=== PATIENT | female | born 1950 | race Caucasian/White ===

== ENCOUNTER 2025-06-21 11:12 | Emergency (ER) | payer MEDICARE, SELFPAY ==
[2025-06-21 11:15] VITALS: BP 166/95; PULSE 110; TEMP 36.8; O2SAT 98; BMI 24.9
--- NOTE | 2025-06-21 11:39 | CT_ITS ---
The [address] [address] Patient Name: MATEO HOUSE MRN: [id number] date: 1950 Sex: F Assigned Patient Location: ED.MAIN Current Patient Location: ED.MAIN Accession/Order Number: [id number] Exam Date: 06/21/2025 12:19 Report Date: 06/21/2025 12:57 At the request of: STEFFANY LEACH MD Procedure: CT abdomen pelvis w con CT ABDOMEN AND PELVIS WITH CONTRAST CLINICAL DATA: Generalized abdominal pain with constipation. COMPARISON: None Spiral images were obtained through the abdomen and pelvis following 100 mL of Omnipaque 300. This CT exam was performed using one or more following dose reduction techniques: Automated exposure control, adjustment of the mA and/or kV according to patient size, or use of iterative reconstruction technique. Limited cuts through the lung bases show atelectasis and/or scarring, greater on the left. There is a small Bochdalek hernia at the left hemidiaphragm containing fat. No calcified gallstones are identified. There is a 13 mm peripheral cyst at the anterior liver. Calcified splenic granulomas. The pancreas and adrenal glands show no acute abnormalities. There is cortical scarring at the superior pole of the left kidney. The renal nephrograms are symmetric. No hydronephrosis is seen. There is a tiny right renal cortical cyst. The abdominal aorta is normal caliber. There are a few small mesenteric lymph nodes. No ascites is seen. The small bowel loops are normal caliber. There is stool throughout the colon. Levoscoliotic curvature is visualized. There are also mild degenerative changes. Images through the pelvis are slightly limited by streak artifact from bilateral hip prostheses. No dilated small bowel is identified. The appendix is not discretely seen. There is stool at the cecum and distal colon. There is a short segment of apparent wall thickening at the sigmoid colon. There are descending and sigmoid diverticula. No associated active inflammation is seen. The uterus is surgically absent. Evaluation of the urinary bladder is limited by the hardware artifact. No ascites is seen. CT/CT abdomen pelvis w con IMPRESSION: HEPATIC AND RIGHT RENAL CYSTS. NO BOWEL OR URINARY TRACT OBSTRUCTION. MODERATE COLONIC STOOL COMPATIBLE WITH CONSTIPATION. DIVERTICULOSIS. APPARENT SEGMENT OF WALL THICKENING AT THE SIGMOID COLON. THIS MIGHT BE PHYSIOLOGIC. IF SYMPTOMS WARRANT AND NOT RECENTLY PERFORMED, FOLLOW-UP COLONOSCOPY COULD BE CONSIDERED TO EXCLUDE UNDERLYING PATHOLOGY. NO ADDITIONAL ACUTE FINDINGS. Impression dictated by: Dora Stanton M.D. 06/21/2025 12:57 PM Dictation Location: [place] [address] Electronically authenticated by: [id number] Y Date: 06/21/2025 12:57
--- NOTE | 2025-06-21 11:40 | ED_ITS ---
HPI HPI - General Adult General Chief complaint: Abdominal Pain Stated complaint: CONSTIPATION, ABDOMINAL PAIN Time Seen by Provider: 06/21/25 11:21 Source: patient Mode of arrival: walk-in Limitations: no limitations History of Present Illness HPI narrative: 74-year-old female to the emergency department with chief complaint of abdominal pain. Ongoing for the last 6 days. It is cramping and generalized in nature. She reports she has not had a bowel movement in that long. She denies any fever, sweats, chills. No nausea or vomiting. She is under the care of GI at [facility], Dr. Ramachandran. She reports that she has been on several medications for constipation and none have worked. She reports that MiraLAX does not work so she stopped that and took some Colace. This did not work so she took a stimulant. None of these have produced a bowel movement for this week. Related Data Allergies Allergy/AdvReac Type Severity Reaction Status Date / Time Unable to Assess Allergy Verified 06/21/25 11:18 Opioid HPI Opioid Management Most Recent Opioid Data: Last Pain Scale 8 Today, 11:51 Review of Systems ROS Status of ROS 10 or more systems reviewed and unremark able except as noted in history and below PFSH PFSH Social History Little interest or pleasure in doing things: not at all Feeling down, depressed, or hopeless: not at all Exam Narrative Exam Narrative: VITALS: I have reviewed the triage vital signs. GENERAL: Well developed, well appearing adult in no acute distress. NEURO: Alert and oriented. Moves all extremities. Face is symmetric and expressive. EYES: PERRL. No scleral icterus or conjunctival injection. No discharge. HENT: Normocephalic, atraumatic. Hearing is grossly intact. Nares grossly patent and without discharge. Mucous membranes moist. NECK: No JVD. Patient moves neck without restriction. CARDIO: Rhythm regular. Normal rate. No murmur, rub, or gallop. Pulses equal bilaterally in the upper and lower extremity. No lower extremity edema. PULM: Lungs clear to auscultation in all juan. No wheezes, rales, or rhonchi. No conversational dyspnea. No splinting, stridor, or accessory muscle use. GI/: Abdomen is soft and non-tender. Normoactive bowel sounds. EXTREMITIES: Symmetric muscle bulk. No joint swelling. No clubbing, cyanosis, or deformity. SKIN: Warm and dry. Normal turgor. No rash or lesions appreciated. PSYCH: Mood, affect, and interaction is appropriate to the setting. Constitutional Vital Signs, click to edit/add: Last Vital Signs Temp 98.2 F 06/21/25 13:16 Pulse 85 06/21/25 13:16 Resp 16 06/21/25 13:16 BP 146/80 H 06/21/25 13:16 Pulse Ox 96 06/21/25 13:16 O2 Del Method Room Air 06/21/25 13:16 Course Vital Signs Vital signs: Vital Signs Temperature 98.3 F 06/21/25 11:15 Pulse Rate 110 H 06/21/25 11:15 Respiratory Rate 16 06/21/25 11:15 Blood Pressure 166/95 H 06/21/25 11:15 Pulse Oximetry 98 06/21/25 11:15 Oxygen Delivery Method Room Air 06/21/25 11:15 Temperature 98.2 F 06/21/25 13:16 Pulse Rate 85 06/21/25 13:16 Respiratory Rate 16 06/21/25 13:16 Blood Pressure 146/80 H 06/21/25 13:16 Pulse Oximetry 96 06/21/25 13:16 Oxygen Delivery Method Room Air 06/21/25 13:16 Medical Decision Making MDM Narrative Medical decision making narrative: 31-year-old female to the emergency department with chief complaint of generalized abdominal pain, constipation. Vital stable, the patient is afebrile. Given her advanced age, change in bowel habits and pain will order a CT scan to rule out obstruction/diverticular disease. Basic labs. Patient agrees with this plan. Lab work unremarkable. CT scan with moderate constipation. Question of thickening of wall in sigmoid c olon physiologic versus abnormal. Discussed findings with the patient. Recommended colonoscopy and GI evaluation for the sigmoid wall thickening. We discussed constipation treatment strategies. MiraLAX cleanout prep is suggested. Return precautions were discussed. All questions were answered. The patient was discharged home. Medical Records Medical records reviewed: Yes I reviewed the patient's medical records Lab Data Lab results reviewed: Yes I reviewed the patient's lab results Labs: Lab Results 06/21/25 06/21/25 Range/Units 11:45 12:42 WBC 12.8 H (4.0-11.0) 10^3/uL RBC 4.57 (4.20-5.40) 10^6/uL Hgb 14.0 (12.0-16.0) g/dL Hct 40.7 (36.0-48.0) % MCV 89.1 (81.0-99.0) fL MCH 30.6 (26.7-34.0) pg MCHC 34.4 (29.9-35.2) g/dL RDW 12.9 (11.0-15.0) % Plt Count 349 (150-450) 10^3/uL MPV 9.5 (9.5-13.5) fL Neut % (Auto) 84.0 H (43.0-75.0) % Lymph % (Auto) 8.1 L (20.5-60.0) % [place] % (Auto) 7.0 (1.7-12.0) % Eos % (Auto) 0.4 L (0.9-7.0) % Baso % (Auto) 0.2 (0.2-2.0) % Neut # (Auto) 10.7 H (1.4-6.5) 10^3/uL Lymph # (Auto) 1.0 L (1.2-3.8) 10^3/uL [place] # (Auto) 0.9 H (0.3-0.8) 10^3/uL Eos # (Auto) 0.1 (0.0-0.7) 10^3/uL Baso # (Auto) 0.0 (0.0-0.1) 10^3/uL Abs Immat Gran (auto) 0.04 H (0.00-0.03) 10^3/uL Imm/Tot Granulo (auto) 0.3 (0.0-0.5) % Sodium 139 (136-145) mmol/L Potassium 4.1 (3.5-5.1) mmol/L Chloride 102 (98-107) mmol/L Carbon Dioxide 28.2 (21.0-32.0) mmol/L Anion Gap 12.9 BUN 7.0 (7.0-18.0) mg/dL Creatinine 0.70 (0.55-1.02) mg/dL Est GFR ( Amer) >60 (>=60 mL/min/1.73m^2) Est GFR (Non-Af Amer) >60 (>=60 mL/min/1.73m^2) BUN/Creatinine Ratio 10.0 Glucose 99 (74-106) mg/dL Calcium 9.0 (8.5-10.1) mg/dL Total Bilirubin 0.7 (0.2-1.0) mg/dL AST 13 L (15-37) U/L ALT 19 (14-59) U/L Alkaline Phosphatase 48 (46-116) U/L Total Protein 7.9 (6.4-8.2) g/dL Albumin 4.0 (3.4-5.0) g/dL Globulin 3.9 g/dL Albumin/Globulin Ratio 1.0 Lipase 21.0 (16.0-77.0) U/L Urine Color Lt. yellow (YELLOW) Urine Clarity Clear (CLEAR) Urine pH 7.5 (5.0-9.0) Ur Specific [place] 1.010 (1.005-1.025) Urine Protein Negative (NEG/TRACE) mg/dL Urine Glucose (UA) Negative (NEGATIVE) mg/dL Urine Ketones Negative (NEGATIVE) mg/dL Urine Occult Blood Trace-l (NEGATIVE) Urine Nitrite Negative (NEGATIVE) Urine Bilirubin Negative (NEGATIVE) Urine Urobilinogen 0.2 (0.2-1.0) EU/dL Ur Leukocyte Esterase Negative (NEGATIVE) Urine RBC 0-2 (0-2) #/HPF Urine WBC 0-2 A (NONE SEEN) #/HPF Ur Squamous Epith Cells Rare (NONE/RARE) #/LPF Urine Crystals None seen (None Seen) #/HPF Urine Bacteria None seen (NONE SEEN) #/HPF Urine Casts None seen (NONE SEEN) #/LPF Urine Mucus None seen (NONE SEEN) Ur Culture Indicated? No Imaging Data CT scan - abdomen: Attestation: I have reviewed the pertinent imaging results. Radiologist's impression: ITS Impressions Abdomen/Pelvis CT 06/21/25 11:39 IMPRESSION: HEPATIC AND RIGHT RENAL CYSTS. NO BOWEL OR URINARY TRACT OBSTRUCTION. MODERATE COLONIC STOOL COMPATIBLE WITH CONSTIPATION. DIVERTICULOSIS. APPARENT SEGMENT OF WALL THICKENING AT THE SIGMOID COLON. THIS MIGHT BE PHYSIOLOGIC. IF SYMPTOMS WARRANT AND NOT RECENTLY PERFORMED, FOLLOW-UP COLONOSCOPY COULD BE CONSIDERED TO EXCLUDE UNDERLYING PATHOLOGY. NO ADDITIONAL ACUTE FINDINGS. Impression dictated by: Dora Stanton M.D. 06/21/2025 12:57 PM Dictation Location: [place] [address] Electronically authenticated by: [id number] Y Date: 06/21/2025 12:57 Discharge Plan Discharge Chief Complaint: Abdominal Pain Clinical Impression: Constipation Patient Disposition: Home, Self-Care Time of Disposition Decision: 13:13 Condition: Good Mode of Transportation: Private Vehicle Print Language: Hungarian Instructions: Constipation (ED) Additional Instructions: Call the office of your primary care doctor to arrange for follow-up within the above-stated timeframe. Your ED visit was focused on your acute issue and does not replace primary care. You should review your labs, imaging, and diagnoses from this ED visit with your primary care physician. There may be non-emergent/ incidental findings that need further evaluation. You should review your vital signs including blood pressure with your PCP. If you were prescribed medications you should discuss possible side-effects and drug interactions with your pharmacist. Call 911 or go to the nearest Emergency Department if you develop any new or worsening symptoms. Seek immediate medical attention if you develop: worsening abdominal pain, new or worsening nausea, new or worsening vomiting, new or worsening diarrhea, chest pain, shortness of breath, pain with urination, problems urinating, fever, chills, weakness, or any new or worsening symptoms. Begin MiraLAX cleanout prep. Take a 238g bottle of MiraLAX and split evenly between two 32 gatorade bottles. Drink 8 oz every 15 min. Stay near a toilet. Referrals: EV RAMACHANDRAN [Physician, Gastroenterology] - 1 week Referral Note: Follow-up to discuss thickening of the sigmoid colon seen on CT scan and consideration of colonoscopy DIPIKA DENSON [Primary Care Provider, Family Practice] - 1 week
[2025-06-21 11:54] LABS: Hematocrit 40.7 % (36.0-48.0); Hemoglobin 14.0 g/dL (12.0-16.0); Immature Granulocytes Abs Auto 0.04 10^3/uL (0.00-0.03); Immature Granulocytes Pct Auto 0.3 % (0.0-0.5); Lymphocytes Absolute Auto 1.0 10^3/uL (1.2-3.8); Mean Corpuscular HGB Conc 34.4 g/dL (29.9-35.2); Mean Corpuscular Hemoglobin 30.6 pg (26.7-34.0); Mean Corpuscular Volume 89.1 fL (81.0-99.0); Platelet Count 349 10^3/uL (150-450); Red Blood Count 4.57 10^6/uL (4.20-5.40); White Blood Count 12.8 10^3/uL (4.0-11.0)
[2025-06-21 12:12] LABS: Alanine Aminotransferase 19 U/L (14-59); Albumin Globulin Ratio 1.0; Albumin Level 4.0 g/dL (3.4-5.0); Alkaline Phosphatase 48 U/L (46-116); Anion Gap 12.9; Aspartate Amino Transferase 13 U/L (15-37); Blood Urea Nitrogen 7.0 mg/dL (7.0-18.0); Calcium 9.0 mg/dL (8.5-10.1); Carbon Dioxide 28.2 mmol/L (21.0-32.0); Chloride 102 mmol/L (98-107); Estimated GFR (African America >60 (>=60 mL/min/1.73m^2); Estimated GFR (Non-African Ame >60 (>=60 mL/min/1.73m^2); Globulin 3.9 g/dL; Glucose 99 mg/dL (74-106); Lipase 21.0 U/L (16.0-77.0); Potassium 4.1 mmol/L (3.5-5.1); Sodium 139 mmol/L (136-145); Total Protein 7.9 g/dL (6.4-8.2)
[2025-06-21 12:50] LABS: Glucose Urine UA NEGATIVE (NEGATIVE)
[2025-06-21 12:55] LABS: Cast Seen? NONE SEEN #/LPF (NONE SEEN); Crystals Seen? None Seen #/HPF (None Seen); Urine Culture Indicated NO
[2025-06-21 13:16] VITALS: BP 146/80; PULSE 85; TEMP 36.8; O2SAT 96
== END 2025-06-21 13:27 | disposition home or self-care (01) ==
PROVIDERS: Emergency Provider Student in an Organized Health Care Education/Training Program; PCP Family Medicine
DX: K59.00 Constipation, unspecified (principal)
CPT/HCPCS: 36415; 74177; 80053; 81001; 83690; 85025; 99285; Q9967